=== PATIENT | male | born 1995 | race Caucasian/White ===

== ENCOUNTER 2023-07-25 16:47 | Emergency (ER) | payer BC ==
[2023-07-25 16:54] VITALS: BP 116/75; PULSE 48
== END 2023-07-25 17:35 | disposition home or self-care (01) ==
LOC: LL.ED 16:47
DX: R07.89 Other chest pain (principal)
CPT/HCPCS: 99283

== ENCOUNTER 2024-02-20 15:18 | Emergency (ER) | payer SELFPAY ==
[2024-02-20] MEDS: oxyCODONE 5 MG Tab PO ONE (15:54)
[2024-02-20] MEDS: Acetaminophen 500 MG Tab PO ONE (15:54)
[2024-02-20] MEDS: Lidocaine 2% with EPINEPHrine 1:100,000 20 ML MDV INJECT ONE (17:19)
[2024-02-20] MEDS: ceFAZolin 1 GM Vial IVPUSH ONE (17:44)
[2024-02-20] MEDS: Sodium Chloride 0.9% 10 ML Syringe FLUSH PRN (17:52)
[2024-02-20] MEDS: Bacitracin Oint 1 GM U/D Packet TOP ONE (18:01)
[2024-02-20 18:45] VITALS: BP 110/72; PULSE 50
== END 2024-02-20 18:11 | disposition home or self-care (01) ==
LOC: LL.ED 15:18
DX: S81.011A Laceration without foreign body, right knee, initial encounter (principal); F17.210 Nicotine dependence, cigarettes, uncomplicated; Z79.899 Other long term (current) drug therapy; W29.8XXA Contact with other powered hand tools and household machinery, initial encounter; Y93.89 Activity, other specified
CPT/HCPCS: 12032; 73560-RT; 96374; 99283; 99283-25; A9270-GY; J0690; J3490

== ENCOUNTER 2024-02-21 06:55 | Emergency (ER) | payer SELFPAY ==
[2024-02-21 07:26] LABS: BASOPHILS ABSOLUTE AUTO 0.02 K/uL (0.00-0.20); BASOPHILS PERCENT AUTO 0.2 % (0.0-2.0); HEMATOCRIT 42.8 % (39.0-49.0); HEMOGLOBIN 14.2 g/dL (13.1-16.8); LYMPHOCYTES ABSOLUTE AUTO 1.56 K/uL (0.50-3.50); LYMPHOCYTES PERCENT AUTO 15.1 % (10.0-50.0); MEAN CORPUSCULAR HGB CONC 33.2 g/dL (31.7-36.0); MEAN CORPUSCULAR VOLUME 90.5 fL (84.0-98.0); MONOCYTES ABSOLUTE AUTO 1.41 K/uL (0.00-1.00); MONOCYTES PERCENT AUTO 13.7 % (2.0-14.0); NEUTROPHILS ABSOLUTE AUTO 7.21 K/uL (1.40-7.00); PLATELET COUNT,PLT 230 K/uL (150-350); RED BLOOD CELL COUNT 4.73 M/uL (4.33-5.41); RED CELL DISTRIBUTION WIDTH 13.5 % (11.2-14.1); WHITE BLOOD CELL COUNT,WBC 10.3 K/uL (4.0-10.2)
[2024-02-21 07:44] LABS: ALANINE AMINOTRANSFERASE,ALT 24 U/L (12-78); ALBUMIN 4.1 g/dL (3.4-5.0); ALKALINE PHOSPHATASE 77 IU/L (46-116); ANION GAP 8.9 meq/L (7-15); ASPARTATE AMNIOTRANSFERASE,AST 17 U/L (15-37); BLOOD UREA NITROGEN,BUN 10 mg/dL (7-18); CALCIUM 8.6 mg/dL (8.5-10.1); CARBON DIOXIDE,CO2 29.1 mmol/L (21.0-32.0); CHLORIDE,CL 103 mmol/L (98-107); CREATININE 1.01 mg/dL (0.51-1.17); GLUCOSE RANDOM 87 mg/dL (70-99); POTASSIUM,K 3.8 mmol/L (3.5-5.1); PROTEIN TOTAL,TP 7.1 g/dL (6.4-8.2); SODIUM,NA 141 mmol/L (136-145)
[2024-02-21 07:51] LABS: ESTIMATED GFR 103 mL/min (>=60)
[2024-02-21] MEDS: oxyCODONE ER 10 MG TAB.ER PO ONE (07:53)
[2024-02-21 08:10] VITALS: BP 117/87; PULSE 62
== END 2024-02-21 08:00 ==
LOC: LL.ED 06:55
DX: S81.011D Laceration without foreign body, right knee, subsequent encounter (principal); F17.210 Nicotine dependence, cigarettes, uncomplicated; Z79.899 Other long term (current) drug therapy; W31.2XXD Contact with powered woodworking and forming machines, subsequent encounter
CPT/HCPCS: 36415; 80053; 85025; 99284; A9270-GY

== ENCOUNTER 2025-03-20 20:23 | Emergency (ER) | payer MEDICAID, OTHER ==
[2025-03-20 20:36] VITALS: BP 130/83; PULSE 60
== END 2025-03-20 21:03 | disposition home or self-care (01) ==
LOC: LL.ED 20:23
DX: S61.216A Laceration without foreign body of right little finger without damage to nail, initial encounter (principal); J45.909 Unspecified asthma, uncomplicated; F17.200 Nicotine dependence, unspecified, uncomplicated; Z79.899 Other long term (current) drug therapy; W26.8XXA Contact with other sharp object(s), not elsewhere classified, initial encounter
CPT/HCPCS: 12001; 99282